=== PATIENT | female | born 1995 | race Caucasian/White ===

== ENCOUNTER 2019-07-11 09:35 | Day surgery (SDC) | payer MEDICAID ==
[~2019-07-11 09:35] MED LIST: Buffered Lidocaine 1% SYRIN* 1 ML/SYRINGE INTRADERM ONE; Famotidine IV* 10 MG/ML 2 ML (20 mg) IV ONE; Lactated Ringers 1000 ML Bag* 1,000 ML IV SCH
[2019-07-11] MEDS ORDERED: Famotidine IV* 10 MG/ML 2 ML (20 mg) ONE ×2 (09:54)
[2019-07-11] MEDS ORDERED: Buffered Lidocaine 1% SYRIN* 1 ML/SYRINGE INTRADERM ONE ×2 (09:54)
[2019-07-11] MEDS ORDERED: DOXYcycline IV 200 MG in NS 250 mL *Pre-Op OBGYN IVPB ONE ×4 (10:00)
[2019-07-11 10:37] LABS: ABS Basophils 0.1 10^3/ul (0-0.2); ABS Eosinophils 0.3 10^3/ul (0-0.6); ABS Lymphocytes 2.2 10^3/ul (1.0-4.8); ABS Monocytes 0.7 10^3/ul (0-0.8); ABS Neutrophils 8.2 10^3/ul (1.5-7.7); Eosinophil % 2.8 %; Hematocrit 33 % (35-47); Hemoglobin 10.2 g/dL (12.0-16.0); Lymphocyte % 19.3 %; Mean Corpuscular HGB Conc 31 g/dL (31-36); Mean Corpuscular Hemoglobin 19 pg (27-31); Mean Corpuscular Volume 62 fL (80-97); Mean Platelet Volume 8.6 fL (7.4-10.4); Platelet Count 425 10^3/uL (150-450); Red Blood Count 5.28 10^6 /uL (3.70-4.87); Red Cell Distribution Width 20 % (10-15); White Blood Count 11.6 10^3/uL (3.5-10.8)
[2019-07-11] MEDS ORDERED: Lidocaine 1% INJ* 10 MG/ML 30 ML SDV ONE ×2 (11:28)
[2019-07-11] MEDS ORDERED: Misoprostol TAB* 200 MCG ONE ×2 (11:28)
[2019-07-11] MEDS ORDERED: Propofol* 10 MG/ML 20 ML BTL ONE ×4 (11:29→12:09)
[2019-07-11] MEDS ORDERED: fentaNYL* 50 MCG/ML 2 ML VIAL (100 MCG VIAL) ONE ×4 (11:29→13:04)
[2019-07-11] MEDS ORDERED: Midazolam* 1 MG/ML 10 ML VIAL (10 MG) ONE ×2 (11:29)
[2019-07-11] MEDS ORDERED: Lidocaine 2% PF * 5 ML VIAL ONE ×2 (11:29)
[2019-07-11] MEDS ORDERED: Dexamethasone IV* 4 MG/ML 1 ML (4 MG) ONE ×2 (11:29)
[2019-07-11] MEDS ORDERED: Ondansetron INJ* 2 MG/ML VIAL ONE ×2 (11:29)
[2019-07-11] MEDS ORDERED: KETAMINE HCL* 50 MG/ML 10 ML VIAL ONE ×2 (11:29)
[2019-07-11] MEDS ORDERED: Ondansetron INJ* 2 MG/ML VIAL IV PRN (12:40)
[2019-07-11] MEDS ORDERED: Naloxone* 0.4 MG/ML 1 ML VIAL IV PRN (12:40)
[2019-07-11] MEDS: fentaNYL* 50 MCG/ML 2 ML VIAL (100 MCG VIAL) IV PRN ×2 (13:05→13:33)
[2019-07-11 13:46] VITALS: BP 109/65
--- NOTE | 2019-07-12 00:11 | OP ---
DATE OF SURGERY: 07/11/19 - [facility] DATE OF : 89 SURGEON: Alma Gaytan MD VENDING MACHINE MECHANIC: "Yudi Lazaro," nurse practitioner training. ANESTHESIA: MAC with paracervical block. PRE-OP DIAGNOSIS: Missed . POST-OP DIAGNOSIS: Missed . OPERATIVE PROCEDURE: Dilation, evacuation, curettage. ESTIMATED BLOOD LOSS: 100 cc. URINE OUTPUT: 100 cc of concentrated yellow urine. FLUIDS: 1400 cc of crystalloid. FINDINGS: Intrauterine contents consistent with intrauterine products of conception suspicious in appearance for molar . COMPLICATIONS: None apparent. DISPOSITION: Stable to recovery room. DESCRIPTION OF PROCEDURE: The patient was placed in dorsal lithotomy position. Legs were placed in [place] stirrups. The patient's perineum and vagina were prepped and draped in a sterile standard fashion. The patient was identified with universal protocol for correct position, patient, and procedure. Self-cath was inserted for drainage of concentrated yellow urine. Self-cath was removed. Sterile speculum was inserted. Cervix was visualized and a paracervical block was carried out with 10 cc of 1% lidocaine. Single- tooth tenaculum was placed and dilated to #9 Hegar dilator. An 8-mm curved suction curette was then used to completely evacuate the intrauterine cavity. Sharp curettage was then performed confirming excellent removal in all 4 quadrants of products of conception. Single-tooth tenaculum was removed. Cytotec was placed intravaginally 800 mcg after removal of the speculum. All sponge, needle, instrument, blade counts were correct throughout the case. The patient tolerated the procedure well, and went to the recovery room in stable condition. [id number]/[facility] #: [id number] [facility]
== END 2019-07-11 14:35 | disposition home or self-care (01) ==
LOC: OR 09:35
PROVIDERS: ATTEND Obstetrics & Gynecology
DX: O01.0 Classical hydatidiform mole (principal)
CPT/HCPCS: 36415; 85025; 85060; 86850; 86900; 86901; 88305; A9270-GY; J1100; J2250; J2405; J2704; J3010